=== PATIENT | female | born 1995 | race African-American/Black ===

== ENCOUNTER 2016-09-03 13:01 | Emergency (ER) | payer OTHER ==
[~2016-09-03] VITALS: Ht 162.6 cm; Wt 72.6 kg
--- NOTE | 2016-09-03 13:29 | ED.ADGEN ---
Past Medical History Past Medical History: No Pertinent History, Asthma Past Surgical History: No Surgical History Alcohol Use: None Drug Use: None Adult General Chief Complaint Chief Complaint: ABDOMINAL PAIN HPI HPI Patient is a 21 year old -year-old female who presents with intermittent lower abdominal cramping 4 days. Patient states cramps like menstrual period which was scheduled to begin earlier this week but did not occur. Symptoms are rated [id number] of after eating. Patient denies nausea, vomiting, flank pain, hematuria, dysuria, urinary frequency, urgency, constipation and diarrhea. No other acute symptoms or complaints. Review of Systems Review of Systems ROS as per HPI. Allergies Allergies Allergies Coded Allergies Type Severity Reaction Last Updated Verified No Known Drug Allergies 04/26/13 No Physical Exam Physical Exam Constitutional: Well developed, well nourished, no acute distress. HENT: Normocephalic, atraumatic, bilateral external ears normal, oropharynx moist, no oral exudates, nose normal. Eyes: PERRLA, EOMI, conjunctiva normal. Neck: Normal range of motion. Cardiovascular:Heart rate regular rhythm, no murmur. Lungs & Thorax: Bilateral breath sounds clear to auscultation. Abdomen: Bowel sounds normal, soft, no tenderness, no masses. Skin: Warm, dry. Back: No tenderness. Extremities: No tenderness. Neurologic: Alert and oriented X 3, normal motor function, normal sensory function. Psychologic: Affect normal, judgement normal. EKG EKG [] Radiology/Procedures Radiology/Procedures [] Course & Med Decision Making Course & Med Decision Making Pertinent Labs and Imaging studies reviewed. (See chart for details) [Patient's abdomen soft and nontender on my evaluation. Symptoms are mild and intermittent. Urine regnancy and UA will be checked along with an abdominal series of test is negative. Patient will be treated appropriately with anticipated discharge home. Dragon Disclaimer Dragon Disclaimer This electronic medical record was generated, in whole or in part, using a voice recognition dictation system. PRAVIN KING DO Sep 03, 2016 13:29
[2016-09-03 13:49] LABS: BASO % 1 % (0-3); EOS % 5 % (0-3); HEMATOCRIT 39.9 % (36.0-47.0); HEMOGLOBIN 13.8 g/dL (12.0-15.5); LYMPH # 2.3 x10^3/uL (1.0-4.8); LYMPH % 46 % (24-48); MEAN CORPUSCULAR HEMOGLOBIN 32 pg (25-35); MEAN CORPUSCULAR HGB CONC 35 g/dL (31-37); MEAN CORPUSCULAR VOLUME 92 fL (79-100); MONO % 10 % (0-9); NEUT % 38 % (31-73); PLATELET COUNT 140 x10^3/uL (140-400); RED BLOOD COUNT 4.32 x10^6/uL (3.50-5.40); RED CELL DISTRIBUTION WIDTH 13.7 % (11.5-14.5); WHITE BLOOD COUNT 5.1 x10^3/uL (4.0-11.0)
[2016-09-03 14:05] LABS: BILIRUBIN,URINE NEGATIVE (NEG); GLUCOSE,URINE NEGATIVE (NEG); NITRITE,URINE NEGATIVE (NEG); PROTEIN,URINE NEGATIVE (NEG-TRACE)
[2016-09-03 14:14] LABS: BACTERIA,URINE FEW /HPF (0-FEW); RBC,URINE 0 /HPF (0-2); SQUAMOUS EPITHELIAL CELL,UR FEW /LPF
[2016-09-03 15:45] VITALS: BP 122/77
--- NOTE | 2016-09-04 08:31 | RAD ---
Three-view acute abdominal series. History: Low abdominal pain 3 views were taken for acute abdominal series. The lungs are clear. Heart is normal in size without heart failure. There is no effusion. There is no free air on the upright view of the abdomen or abnormal air-fluid levels. Bowel pattern is normal without bowel obstruction. There are no abnormal calcifications. There are phleboliths in the pelvis. Impression: 1. No acute chest disease. 2. No bowel obstruction or acute finding noted in the abdomen.
== END 2016-09-03 15:56 | disposition home or self-care (01) ==
LOC: ER 13:01
DX: R10.30 Lower abdominal pain, unspecified (principal); J45.909 Unspecified asthma, uncomplicated
CPT/HCPCS: 36415; 74022; 81001; 81025; 85027; 87086; 99285-25

== ENCOUNTER 2017-10-03 15:02 | Emergency (ER) | payer OTHER ==
[~2017-10-03] VITALS: Ht 162.6 cm; Wt 63.0 kg
[2017-10-03 15:43] LABS: BILIRUBIN,URINE NEGATIVE (NEG); CLARITY,URINE CLEAR; COLOR,URINE YELLOW; NITRITE,URINE NEGATIVE (NEG); PH,URINE 6.5; PROTEIN,URINE NEGATIVE (NEG-TRACE)
[2017-10-03 15:45] VITALS: BP 109/61
[2017-10-03] MEDS ORDERED: ACETAMINOPHEN 500 MG TABLET PO ONE (15:45)
[2017-10-03 15:46] LABS: SQUAMOUS EPITHELIAL CELL,UR FEW /LPF
[2017-10-03 15:47] LABS: BACTERIA,URINE 0 /HPF (0-FEW); RBC,URINE 0 /HPF (0-2); WBC,URINE OCC /HPF (0-4)
[2017-10-03 16:08] LABS: BASO # 0.1 x10^3/uL (0.0-0.2); BASO % 1 % (0-3); EOS # 0.4 x10^3/uL (0.0-0.7); EOS % 4 % (0-3); HEMOGLOBIN 12.7 g/dL (12.0-15.5); LYMPH # 2.6 x10^3/uL (1.0-4.8); LYMPH % 28 % (24-48); MEAN CORPUSCULAR HEMOGLOBIN 32 pg (25-35); MEAN CORPUSCULAR HGB CONC 34 g/dL (31-37); MEAN CORPUSCULAR VOLUME 94 fL (79-100); MONO % 11 % (0-9); NEUT # 5.2 x10^3uL (1.8-7.7); NEUT % 56 % (31-73); PLATELET COUNT 153 x10^3/uL (140-400); RED BLOOD COUNT 3.94 x10^6/uL (3.50-5.40); RED CELL DISTRIBUTION WIDTH 13.9 % (11.5-14.5); WHITE BLOOD COUNT 9.3 x10^3/uL (4.0-11.0)
[2017-10-03 16:21] LABS: CREATININE 0.8 mg/dL (0.6-1.0); GFR 109.6; POTASSIUM 3.6 mmol/L (3.5-5.1)
[2017-10-03 16:25] LABS: ALBUMIN/GLOBULIN RATIO 0.8 (1.0-1.7); TOTAL BILIRUBIN 0.3 mg/dL (0.2-1.0); TOTAL PROTEIN 6.9 g/dL (6.4-8.2)
[2017-10-03] MEDS ORDERED: IV NORMAL SALINE 1000ML BAG 1,000 ML IV ONE (16:45)
--- NOTE | 2017-10-03 18:01 | RAD ---
Brain MRI, Without Contrast: History: Right-sided numbness. Technique: Multiplanar and multisequence imaging of the brain was performed, without contrast. Diffusion weighted sequences were performed. Findings: There is no mass effect or extraaxial fluid collections. There is no hydrocephalus.The hernandes and white matter appear normal and symmetrical. Diffusion weighted sequences demonstrate no imaging evidence of acute ischemia. There is fluid within the ethmoid air cells and tiny polyps versus mucous retention cysts in the sphenoid sinus and left frontal sinus and anterior left maxillary sinus. The mastoid air cells are clear. Impression: Mild paranasal sinus disease. No acute intracranial abnormality identified. End impression Brain MRA, Without Contrast: Technique: 3D [id number] 2 slab imaging of the brain was performed, without contrast. Maximum intensity reconstruction was performed. Findings: The basilar artery appears normal. The distal internal carotid arteries appear normal. The major cerebral arteries appear normal. Impression: Negative examination. Electronically signed by: Toñito Kong III, MD (10/03/2017 5:57 PM) [facility]
--- NOTE | 2017-10-03 18:01 | RAD ---
Brain MRI, Without Contrast: History: Right-sided numbness. Technique: Multiplanar and multisequence imaging of the brain was performed, without contrast. Diffusion weighted sequences were performed. Findings: There is no mass effect or extraaxial fluid collections. There is no hydrocephalus.The hernandes and white matter appear normal and symmetrical. Diffusion weighted sequences demonstrate no imaging evidence of acute ischemia. There is fluid within the ethmoid air cells and tiny polyps versus mucous retention cysts in the sphenoid sinus and left frontal sinus and anterior left maxillary sinus. The mastoid air cells are clear. Impression: Mild paranasal sinus disease. No acute intracranial abnormality identified. End impression Brain MRA, Without Contrast: Technique: 3D [id number] 2 slab imaging of the brain was performed, without contrast. Maximum intensity reconstruction was performed. Findings: The basilar artery appears normal. The distal internal carotid arteries appear normal. The major cerebral arteries appear normal. Impression: Negative examination. Electronically signed by: Toñito Kong III, MD (10/03/2017 5:57 PM) [facility]
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
== END 2017-10-03 18:54 | disposition home or self-care (01) ==
LOC: ER 15:02
DX: R20.0 Anesthesia of skin (principal); J45.909 Unspecified asthma, uncomplicated
CPT/HCPCS: 36415; 70544; 70551; 80053; 81001; 81025; 85025; 99285-25

== ENCOUNTER 2018-03-26 16:15 | Emergency (ER) | payer SELFPAY ==
[~2018-03-26] VITALS: Ht 162.6 cm; Wt 71.2 kg
[2018-03-26 17:00] LABS: BASO % 0 % (0-3); EOS # 0.1 x10^3/uL (0.0-0.7); EOS % 1 % (0-3); HEMATOCRIT 40.3 % (36.0-47.0); HEMOGLOBIN 13.2 g/dL (12.0-15.5); LYMPH # 1.4 x10^3/uL (1.0-4.8); LYMPH % 9 % (24-48); MEAN CORPUSCULAR HEMOGLOBIN 31 pg (25-35); MEAN CORPUSCULAR HGB CONC 33 g/dL (31-37); MEAN CORPUSCULAR VOLUME 94 fL (79-100); MONO % 13 % (0-9); NEUT # 12.1 x10^3uL (1.8-7.7); NEUT % 78 % (31-73); PLATELET COUNT 147 x10^3/uL (140-400); RED BLOOD COUNT 4.29 x10^6/uL (3.50-5.40); RED CELL DISTRIBUTION WIDTH 14.5 % (11.5-14.5); WHITE BLOOD COUNT 15.5 x10^3/uL (4.0-11.0)
[2018-03-26] MEDS ORDERED: IV NORMAL SALINE 1000ML BAG 1,000 ML IV ONE (17:00)
[2018-03-26 17:08] LABS: CALCIUM 9.3 mg/dL (8.5-10.1); CREATININE 1.2 mg/dL (0.6-1.0); GFR 68.6; POTASSIUM 4.1 mmol/L (3.5-5.1)
--- NOTE | 2018-03-26 17:45 | RAD ---
Transabdominal ultrasound the pelvis. HISTORY: Post vaginal delivery, vaginal bleeding Transabdominal ultrasound was performed. Uterus is enlarged consistent with measuring 11.3 x 10.5 x 7.6 cm. There is heterogeneous material in the endometrium with endometrial thickening measuring 2.8 cm. Blood clots or retained products of conception are possible. There is no uterine mass. Ovaries were identified. Right ovary was normal measuring 3.7 x 2.1 x 2.4 cm. There is blood flow in the right ovary with color imaging and Doppler. Left ovary was normal measuring 3.8 x 2.3 x 2.5 cm. There is blood flow in the left ovary with color imaging and Doppler. IMPRESSION: 1. Endometrial thickening from blood clots or retained products of conception. Electronically signed by: Danny Chavez MD (03/26/2018 5:40 PM) [facility]
[2018-03-26] MEDS ORDERED: METH0.2T36 PO (17:48)
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
[2018-03-26 18:06] VITALS: BP 153/109
== END 2018-03-26 18:25 | disposition home or self-care (01) ==
LOC: ER 16:15
DX: O72.1 Other immediate postpartum hemorrhage (principal); E86.0 Dehydration; J45.909 Unspecified asthma, uncomplicated
CPT/HCPCS: 36415; 76856; 80048; 85025; 96360; 99284; J7030